=== PATIENT | male | born 1995 | race Two or more races ===

== ENCOUNTER 2024-08-06 23:09 | Inpatient (IN) | payer BC, OTHER ==
[~2024-08-06] VITALS: Ht 185.4 cm; Wt 109.9 kg
[2024-08-06 23:30] VITALS: PULSE 95; O2SAT 99
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
[2024-08-06 23:50] LABS: Basophils # (auto) 0 10 ^3/uL (0-0.2); Basophils % (auto) 0.3 % (0.0-2.0); Eosinophils # (auto) 0.1 10 ^3/uL (0-0.8); Eosinophils % (auto) 0.7 % (0.0-7.0); Hematocrit 37.8 % (41.0-53.0); Lymphocytes % (auto) 19.3 % (10.0-50.0); Mean Corpuscular Hgb Conc. 34.2 g/dL (32.0-36.0); Mean Corpuscular Volume 81.9 fL (80.0-100.0); Monocytes # (auto) 0.9 10 ^3/uL (0-1.3); Monocytes % (auto) 8.7 % (0.0-12.0); Neutrophils # (auto) 7.2 10 ^3/uL (1.6-8.6); Platelet Count (auto) 262 10^3/uL (140-450); Red Blood Cells 4.62 10^6/uL (4.5-5.90); Red Cell Distribution Width 14.7 % (11.8-14.3); White Blood Cell 10.1 10^3/uL (4.4-10.8)
[2024-08-07] LABS: Chloride 102 mmol/L (98-107); Potassium 3.9 mmol/L (3.5-5.1); Sodium 140 mmol/L (136-145)
[2024-08-07 00:01] LABS: Anion Gap 12 (5-15); Calcium 8.9 mg/dL (8.7-10.4); Carbon Dioxide 26 mmol/L (20-31)
[2024-08-07 00:06] LABS: BUN/Creatinine Ratio 14.1 (10.0-20.0); Blood Urea Nitrogen 13 mg/dL (9-23); INR 0.98 (0.9-1.15); Partial Thromboplastin Time 27.1 SEC (24.5-34.5); Prothrombin Time 10.4 sec (9.3-11.8)
[2024-08-07 00:07] LABS: Glucose 121 mg/dL (74-106)
--- NOTE | 2024-08-07 00:33 | DVH ---
CLINICAL INDICATION: pain / fx TECHNIQUE: XY R TIB FIB XRAY Comparison: None FINDINGS/IMPRESSION: : Cast material partially obscures detail. Moderately displaced spiral fractures of the distal tibial and mid fibular diaphyses. There is partia l comminution and posterior displacement of the fibular fracture. Soft tissues are grossly unremarkable.
[2024-08-07] MEDS: ONDANSETRON HCL 4 MG/2 ML VIAL IV ONE (02:06)
[2024-08-07] MEDS: MORPHINE SULFATE 4 MG/ML SYR/VIAL IV ONE (02:07)
[2024-08-07] MEDS ORDERED: DOCUSATE SOD 100 MG CAP PO PRN (04:30)
[2024-08-07] MEDS ORDERED: ACETAMINOPHEN 325 MG TAB PO PRN (04:30)
[2024-08-07] MEDS ORDERED: MORPHINE SULFATE INJ 2 MG/ml SYRG IV PRN (04:30)
[2024-08-07] MEDS ORDERED: NITROGLYCERIN 0.4 MG SL TAB SL PRN (04:30)
[2024-08-07] MEDS ORDERED: ONDANSETRON HCL 4 MG/2 ML VIAL IV PRN (04:30)
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
[2024-08-07 05:35] LABS: Alanine Aminotransferase 24 U/L (7-40); Albumin 3.8 g/dL (3.2-4.8); Anion Gap 10 (5-15); Aspartate Aminotransferase 29 U/L (<34); BUN/Creatinine Ratio 15.8 (10.0-20.0); Blood Urea Nitrogen 12 mg/dL (9-23); Carbon Dioxide 22 mmol/L (20-31); Glucose 100 mg/dL (74-106); Potassium 3.7 mmol/L (3.5-5.1); Sodium 143 mmol/L (136-145); Total Protein 6.2 g/dL (5.7-8.2)
[2024-08-07 05:36] LABS: Alkaline Phosphatase 37 U/L (46-116); Bilirubin, Total 0.8 mg/dL (0.2-1.0); Calcium 8.2 mg/dL (8.7-10.4); Chloride 111 mmol/L (98-107)
[2024-08-07] MEDS: SODIUM CHLOR 0.9% PF (SALINE LOCK) 10ML VIAL/SYR IV SCH (06:08)
[2024-08-07] MEDS: MORPHINE SULFATE INJ 2 MG/ml SYRG IV PRN (06:10)
[2024-08-07 06:16] LABS: Basophils # (auto) 0 10 ^3/uL (0-0.2); Basophils % (auto) 0.6 % (0.0-2.0); Eosinophils # (auto) 0.2 10 ^3/uL (0-0.8); Eosinophils % (auto) 2.3 % (0.0-7.0); Hematocrit 40.8 % (41.0-53.0); Hemoglobin 13.9 g/dL (13.5-17.5); Lymphocytes # (auto) 2.1 10 ^3/uL (0.4-5.4); Mean Corpuscular Hemoglobin 28.2 pg (28.0-32.0); Mean Corpuscular Hgb Conc. 34.1 g/dL (32.0-36.0); Mean Corpuscular Volume 82.6 fL (80.0-100.0); Monocytes # (auto) 1.1 10 ^3/uL (0-1.3); Monocytes % (auto) 12.6 % (0.0-12.0); Neutrophils # (auto) 5.3 10 ^3/uL (1.6-8.6); Neutrophils % (auto) 60.5 % (37.0-80.0); Nucleated Red Blood Cells % 0.1 %; Platelet Count (auto) 263 10^3/uL (140-450); Red Blood Cells 4.94 10^6/uL (4.5-5.90); Red Cell Distribution Width 14.9 % (11.8-14.3); White Blood Cell 8.8 10^3/uL (4.4-10.8)
[2024-08-07 07:25] VITALS: PULSE 92; RESP 16; O2SAT 96
[2024-08-07] MEDS: HYDROcodone-ACET 5/325MG TAB PO PRN (09:48)
[2024-08-07] MEDS: ENOXAPARIN SOD 40 MG/0.4 ML SYRINGE SC SCH (10:29)
[2024-08-07 14:29] VITALS: BP 114/82; PULSE 88; RESP 16; TEMP 98.2; O2SAT 97
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
[2024-08-07 17:00] VITALS: BP 125/69; PULSE 100; RESP 16; TEMP 98.9; O2SAT 94
[2024-08-07] MEDS: ACETAMINOPHEN 325 MG TAB PO SCH (17:05)
[2024-08-07] MEDS: IBUPROFEN 400 MG TAB PO SCH (17:05)
--- NOTE | 2024-08-07 17:20 | DVH ---
CHEST RADIOGRAPH Indication: htn Technique: Single frontal view of the chest was obtained Comparison: None FINDINGS: Lines and Tubes: None Lungs: No focal consolidation. Pleura: No effusion. No pneumothorax. Cardiomediastinal contours: Unremarkable Bones: No acute osseous abnormality. IMPRESSION: 1. No acute cardiopulmonary disease.
[2024-08-07] MEDS: MORPHINE SULFATE 4 MG/ML SYR/VIAL IV PRN (20:10)
[2024-08-07 21:00] VITALS: BP 120/78; PULSE 96; RESP 16; TEMP 98.2; O2SAT 95
[2024-08-08] VITALS (8 sets, daily range): BP systolic 103–126; BP diastolic 61–79; PULSE 67–105; RESP 12–20; TEMP 97–98.2; O2SAT 95–100
[2024-08-08 02:20] LABS: Urine Bacteria None Seen /hpf (None Seen)
[2024-08-08 02:29] LABS: Urine Blood Negative /uL (Negative); Urine Clarity Clear (Clear); Urine Color Light-Yellow (Yellow); Urine Protein, UAD Negative (Negative); Urine Specific Gravity 1.015 (1.001-1.035); Urine Squamous Epithelial Cell None Seen /hpf (<5); Urine Urobilinogen Normal (Negative)
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
[2024-08-08 07:58] LABS: Basophils # (auto) 0 10 ^3/uL (0-0.2); Basophils % (auto) 0.4 % (0.0-2.0); Eosinophils # (auto) 0.4 10 ^3/uL (0-0.8); Eosinophils % (auto) 5.6 % (0.0-7.0); Hematocrit 38.8 % (41.0-53.0); Hemoglobin 13.1 g/dL (13.5-17.5); Lymphocytes # (auto) 1.5 10 ^3/uL (0.4-5.4); Lymphocytes % (auto) 20.8 % (10.0-50.0); Mean Corpuscular Hemoglobin 27.9 pg (28.0-32.0); Mean Corpuscular Hgb Conc. 33.8 g/dL (32.0-36.0); Mean Corpuscular Volume 82.4 fL (80.0-100.0); Monocytes # (auto) 0.7 10 ^3/uL (0-1.3); Monocytes % (auto) 10.2 % (0.0-12.0); Neutrophils # (auto) 4.5 10 ^3/uL (1.6-8.6); Nucleated Red Blood Cells % 0.1 %; Platelet Count (auto) 240 10^3/uL (140-450); Red Blood Cells 4.71 10^6/uL (4.5-5.90); White Blood Cell 7.2 10^3/uL (4.4-10.8)
[2024-08-08] MEDS: CELECOXIB 100 MG CAP PO ONE (08:00)
[2024-08-08] MEDS: ACETAMINOPHEN IV 1000 MG/100ML (10MG/ML) IV ONE (08:00)
[2024-08-08] MEDS: ACETAMINOPHEN IV 100 ML IV ONE (08:02)
[2024-08-08] MEDS: CELECOXIB 100 MG CAP ONE (08:02)
[2024-08-08] MEDS: GABAPENTIN 300 MG CAP ONE (08:02)
[2024-08-08] MEDS ORDERED: LIDOCAINE 1% INJ PF 5ML AMP ONE (08:06)
[2024-08-08] MEDS ORDERED: ONDANSETRON HCL 4 MG/2 ML VIAL ONE (08:06)
[2024-08-08] MEDS ORDERED: DexAMETHasone SOD PHOS 10MG/1ML VIAL INJ ONE (08:06)
[2024-08-08] MEDS ORDERED: KETOROLAC TROMETH 30 MG/ML 1ML VIAL ONE (08:06)
[2024-08-08] MEDS ORDERED: EPINEPHrine HCL 1 MG/1 ML AMP ONE (08:07)
[2024-08-08] MEDS ORDERED: PROPOFOL 10 MG/ML 20 ML IV ONE ×4 (08:07→11:05)
[2024-08-08] MEDS ORDERED: GLYCOPYRROLATE 0.2 MG/ML 1ML VIAL ONE (08:07)
[2024-08-08] MEDS ORDERED: KETAMINE 50mg/ML 1ml syringe ONE (08:08)
[2024-08-08 08:11] LABS: INR 0.94 (0.9-1.15); Partial Thromboplastin Time 29.1 SEC (24.5-34.5)
[2024-08-08 08:15] LABS: Alanine Aminotransferase 21 U/L (7-40); Albumin 4.2 g/dL (3.2-4.8); Anion Gap 10 (5-15); Aspartate Aminotransferase 27 U/L (<34); BUN/Creatinine Ratio 14.5 (10.0-20.0); Bilirubin, Total 0.7 mg/dL (0.2-1.0); Blood Urea Nitrogen 12 mg/dL (9-23); Calcium 9.8 mg/dL (8.7-10.4); Carbon Dioxide 27 mmol/L (20-31); Glucose 99 mg/dL (74-106); Potassium 3.7 mmol/L (3.5-5.1); Sodium 144 mmol/L (136-145)
[2024-08-08 08:20] LABS: Alkaline Phosphatase 42 U/L (46-116); Chloride 107 mmol/L (98-107)
[2024-08-08] MEDS: ceFAZolin 2 GM/D5W50ml 50 ML IV ONE (09:00)
[2024-08-08] MEDS ORDERED: ePHEDrine SULFATE 50 MG/ML AMP ONE (09:25)
[2024-08-08] MEDS ORDERED: LIDOCAINE 2% TOPICAL JELLY 5 ML URJT TOP ONE (09:47)
--- NOTE | 2024-08-08 11:38 | DVHOP2 ---
Discharge Orders Discharge Orders DISCHARGE WHEN CRITERIA MET DISCHARGE WHEN CRITERIA MET. Operative Rep- Outpatient Operative Report PRE-OP DIAGNOSIS: Right distal tibia fracture and fibula fracture PRE-OP PAIN LEVEL (0-10): Tolerable POST-OP DIAGNOSIS: Same POST-OP PAIN LEVEL (0-10): Tolerable [place] protocol followed: Yes ESTIMATED BLOOD LOSS: Minimal PROCEDURE: Right intramedullary nail for distal tibia fracture Closed reduction with manipulation of fibula fracture Right radiographic interpretation of the knee fluoroscopic Radiographic interpretation of the tibia and fibula fluoroscopic Radiographic interpretation of the ankle fluoroscopic SURGEON/HUMANITIES PROFESSOR: Massimo PATEL ANESTHESIA: SPinal ANESTHESIOLOGIST: GLADIS INFORMED CONSENT: Informed Consent: Discussed all inherent risks, complications, and alternatives treatments with the patient. Patient has agreed to proceed with the procedure. I have reviewed all pre-operative assessments including Labs, EKGs, and radiographic images that has been performed. Patient is an appropriate candidate for the outpatient surgical center procedure. The patient is educated on the risks and benefits of surgical and nonsurgical treatment of the patient understands the complex nature of the surgical procedure based on the distal tibia fracture there was no intra-articular extension that was noted based on these parameters the patient was educated on the risks and benefits of surgical and nonsurgical treatment of the right distal tibia fracture the patient understands the risks and benefits surgical and nonsurgical treatment options for surgical treatment of the left and the right lower extremity. The patient understands the risks the patient has a marked in the preoperative holding of the right lower extremity was marked the patient was brought to operative suite general anesthesia was then induced time-out to hospital protocol the right lower extremity was then prepped and draped in the standard fashion Ancef was given for infection prophylaxis the patient was given a spinal anesthetic prior to me being in the room there was a concern we will closely to try to monitor the compartment syndrome so we have educated the nursing staff on all levels the inform us of any increased pain control I have educated of the team as well based on these parameters on the patient had a st arting incision made after of the right lower extremity was prepped and draped in the standard fashion a [id number] clamp was then used with dakota Healy to hold the fracture in the appropriate alignment of the rotation of the appropriate manner once I was then completed in the appropriate manner on the an incision was made through the starting point of the patella once I was then done on the guidewire was then checked on AP and lateral x-ray once I was then done with the starting guidewire on the medial aspect of the lateral 1/3 of the tibial spine along with a the lateral tip of the proximal tibia once I was then done the guidewire was then placed opening Reamer was then placed the ball- tipped guidewire was then placed in the appropriate position sequential reaming was then done on 04/05 0.5 mm of reaming once I was then done the nail was measured to be 395 mm with a therefore then ortho fixed tibial nail a 10 x 390 mm ortho fixed nail was then brought onto the field once I was then done the 10 x 390 mm nail was then placed a 3 tendon with a sternal FX were placed under perfect pokagon technique once I was then done the 2 proximal screws were then placed under perfect pokagon technique stress radiographs of the right ankle were then checked to ensure adequate fracture reduction was then noted stress radiographs of the right tibia and fibula were then done to ensure adequate alignment length and rotation were then checked then once I was in good control in the appropriate manner once I was then done in the appropriate manner the right knee was then done the nail was then noted to be appropriate position once I was then completed in the appropriate manner and position A&O once I was then completed in the appropriate manner in the the aspects of the rotation of the fracture with the appropriate length and reduction on the wounds were then irrigated copiously with saline and closed with 0 Vicryl 2-0 Monocryl and cassandra. The patient will be weight-bearing as tolerated on the right lower extremity PT OT out of bed daily and will follow up in 2 weeks' time the patient was placed in the Cam boot as well. MASSIMO JONES MD Aug 08, 2024 11:38
[2024-08-08] MEDS ORDERED: FLUMAZENIL 0.1 MG/ML INJ 10ML MDV IV PRN (11:45)
[2024-08-08] MEDS ORDERED: hydrALAZINE HCL 20 MG/ML VL IV PRN (11:45)
[2024-08-08] MEDS ORDERED: ONDANSETRON HCL 4 MG/2 ML VIAL IV PRN (11:45)
[2024-08-08] MEDS ORDERED: oxyCODONE HCL 5MG TAB PO PRN (11:45)
[2024-08-08] MEDS ORDERED: NALOXONE HCL 0.4 MG/ML VIAL IV PRN (11:45)
[2024-08-08] MEDS ORDERED: fentaNYL CITRATE 100 MCG/2 ML VL IV PRN (11:45)
[2024-08-08] MEDS ORDERED: HYDROmorphone HCL 2 MG/ML VL/or syr IV PRN (11:45)
[2024-08-08] MEDS ORDERED: ePHEDrine SULFATE 50 MG/ML AMP IV PRN (11:45)
--- NOTE | 2024-08-08 12:04 | DVH ---
C-ARM FLUOROSCOPY: PROCEDURE: ORIF right tibia. FLUOROSCOPY TIME: 218 sec DAP: 3.86 mgy FINDINGS: Spot intraoperative C arm radiographs demonstrating ORIF right tibia. IMPRESSION: Please refer to surgical report for detailed findings.
--- NOTE | 2024-08-08 12:04 | DVH ---
C-ARM FLUOROSCOPY: PROCEDURE: ORIF right tibia. FLUOROSCOPY TIME: 218 sec DAP: 3.86 mgy FINDINGS: Spot intraoperative C arm radiographs demonstrating ORIF right tibia. IMPRESSION: Please refer to surgical report for detailed findings.
[2024-08-08] MEDS: ceFAZolin 2 GM/D5W50ml 50 ML IV SCH (15:32)
[2024-08-08] MEDS: GABAPENTIN 300 MG CAP PO ONE (15:32)
--- NOTE | 2024-08-08 15:33 | DVHPN2 ---
Assessment/Plan Assessment/Plan Progress note 28 M with no significant PMH admitted for R tibfib fx. seen by orhto seen today POD1. pain management, PT physical exam AOX4 PERRLA MMM CTAB s1 s2 rrr no murmur abdomen soft nontender RLE in cast labs vitals imaging reviewed assessment and plan R tibfib fx s/p repair pain management ortho recs appreciated RCRI 0 low risk for low risk procedure preop lab pt pain mgmt diet reg dvt ppx hold Plan discussed with: Patient My Orders Orders - IESHA CORTÉS MD Procedure Category Date Status Time Cardiac DIET 08/08/24 Transmitted Diet-2gna,Lofat,Lochol Lunch Date of Service: Aug 08, 2024 Billing Provider: IESHA CORTÉS MD Common Visit Codes: [id number] INP/OBS CARE(MOD) IESHA CORTÉS MD Aug 08, 2024 15:33
[2024-08-09] VITALS (7 sets, daily range): BP systolic 104–130; BP diastolic 61–77; PULSE 75–104; RESP 17–18; TEMP 36.1; O2SAT 95–98
[2024-08-09] MEDS ORDERED: ACET-1079 PO (10:48)
[2024-08-09] MEDS ORDERED: IBU600T PO (10:48)
[2024-08-09] MEDS ORDERED: HYDR-4902 PO (10:48)
--- NOTE | 2024-08-09 10:49 | DVHDS2 ---
Discharge Summary Date of Admission Aug 07, 2024 at 04:28 Date of Discharge: Aug 09, 2024 Labs/Diagnostic Data: Laboratory Results Test 08/08/24 06:49 08/08/24 02:00 White Blood Count 7.2 10^3/uL (4.4-10.8) Red Blood Count 4.71 10^6/uL (4.5-5.90) Hemoglobin 13.1 g/dL (13.5-17.5) Hematocrit 38.8 % (41.0-53.0) Mean Corpuscular Volume 82.4 fL (80.0-100.0) Mean Corpuscular Hemoglobin 27.9 pg (28.0-32.0) Mean Corpuscular Hemoglobin Concent 33.8 g/dL (32.0-36.0) Red Cell Distribution Width 15.0 % (11.8-14.3) Platelet Count 240 10^3/uL (140-450) Mean Platelet Volume 7.8 fL (6.9-10.8) Neutrophils (%) (Auto) 63.0 % (37.0-80.0) Lymphocytes (%) (Auto) 20.8 % (10.0-50.0) Monocytes (%) (Auto) 10.2 % (0.0-12.0) Eosinophils (%) (Auto) 5.6 % (0.0-7.0) Basophils (%) (Auto) 0.4 % (0.0-2.0) Neutrophils # (Auto) 4.5 10 ^3/uL (1.6-8.6) Lymphocytes # (Auto) 1.5 10 ^3/uL (0.4-5.4) Monocytes # (Auto) 0.7 10 ^3/uL (0-1.3) Eosinophils # (Auto) 0.4 10 ^3/uL (0-0.8) Basophils # (Auto) 0 10 ^3/uL (0-0.2) Nucleated Red Blood Cells 0.1 % Prothrombin Time 10.0 sec (9.3-11.8) Prothrombin Time INR 0.94 (0.9-1.15) Activated Partial Thromboplast Time 29.1 SEC (24.5-34.5) Sodium Level 144 mmol/L (136-145) Potassium Level 3.7 mmol/L (3.5-5.1) Chloride Level 107 mmol/L (98-107) Carbon Dioxide Level 27 mmol/L (20-31) Anion Gap 10 (5-15) Blood Urea Nitrogen 12 mg/dL (9-23) Creatinine 0.83 mg/dL (0.700-1.30) Glomerular Filtration Rate Calc 121 mL/min (>90) BUN/Creatinine Ratio 14.5 (10.0-20.0) Serum Glucose 99 mg/dL (74-106) Calcium Level 9.8 mg/dL (8.7-10.4) Total Bilirubin 0.7 mg/dL (0.2-1.0) Aspartate Amino Transferase (AST) 27 U/L (<34) Alanine Aminotransferase (ALT) 21 U/L (7-40) Alkaline Phosphatase 42 U/L (46-116) Total Protein 7.0 g/dL (5.7-8.2) Albumin 4.2 g/dL (3.2-4.8) Urine Color Light-yellow (Yellow) Urine Clarity Clear (Clear) Urine pH 6.0 (5.0-9.0) Urine Specific [place] 1.015 (1.001-1.035) Urine Protein Negative (Negative) Urine Ketones Negative (Negative) Urine Blood Negative /uL (Negative) Urine Nitrite Negative (Negative) Urine Bilirubin Negative (Negative) Urine Urobilinogen Normal mg/dL (Negative) Urine Leukocyte Esterase Negative /uL (Negative) Urine RBC 1 /hpf (0 - 3) Urine Microscopic WBC /HPF (0-3) Urine Squamous Epithelial Cells None seen /hpf (<5) Urine Bacteria None seen /hpf (None Seen) Urine Glucose Normal mg/dL (Normal) Other Laboratory Tests 08/08/24 06:49 Brief Hx & Hospital Course: 28 M with no significant PMH admitted for R tibfib fx. seen by orhto. s/p reduction and fixation. seen by PT. pain management and follow up. have crutches Condition at Discharge: Good Final Diagnosis/Problems List R tibfib fx s/p repair Discharge Disposition: Home Discharge Instruct/Medications Diet: Regular Activity: Light activity Follow Up/Referral: ortho Medications: tylenol motrin norco Discharge Statement: "Patient was advised to return to the ER or call 911 if any headaches, dizziness, shortness of breath, chest pain, abdominal pain, bleeding, fevers, or worsening of medical condition. Patient was counseled about treatment plan, medications, possible side effects, patientverbalized understanding. All questions were answered to the best of my ability. This discharge took greater then 30 minutes in planning, reviewing documentation, counseling the patient, and discussing with other team members." ASSESSMENT ASSESSMENT Assessment tib fib fx Date of Service: Aug 09, 2024 Billing Provider: IESHA CORTÉS MD Common Visit Codes: [id number] DISCH DAY >30min IESHA CORTÉS MD Aug 09, 2024 10:49
[2024-08-09] MEDS: HYDROcodone-ACET 5/325MG TAB PO PRN (14:50)
== END 2024-08-09 18:30 | disposition home or self-care (01) | DRG 494 ==
LOC: ER 23:09 → EDBD 23:09 → OVERFLOW 08-07 04:28 → EAST 08-07 14:23
PROVIDERS: ADMIT Student in an Organized Health Care Education/Training Program; ATTEND Student in an Organized Health Care Education/Training Program
PROC: 0QSJXZZ Reposition Right Fibula, External Approach (ICD-10-PCS; 2024-08-08)
PROC: 0QSG06Z Reposition Right Tibia with Intramedullary Internal Fixation Device, Open Approach (ICD-10-PCS; principal; 2024-08-08 08:55)
DX: S82.391A Other fracture of lower end of right tibia, initial encounter for closed fracture (principal); S82.401A Unspecified fracture of shaft of right fibula, initial encounter for closed fracture; Z79.899 Other long term (current) drug therapy; Y93.55 Activity, bike riding; X50.1XXA Overexertion from prolonged static or awkward postures, initial encounter; V18.4XXA Pedal cycle driver injured in noncollision transport accident in traffic accident, initial encounter
CPT/HCPCS: 36415; 71045; 73590; 76000; 80048; 80053; 81001; 85025; 85610; 85730; 86850; 86900; 86901; 97163; G0378; J0131; J0171; J1100; J1885; J2405; J2704